=== PATIENT | female | born 1935 | race Caucasian/White ===

== ENCOUNTER 2017-10-05 20:33 | Emergency (ER) | payer MEDICARE, OTHER ==
[~2017-10-05] VITALS: Ht 149.9 cm; Wt 68.0 kg
[2017-10-05 21:20] VITALS: BP 142/76
[2017-10-05] MEDS ORDERED: IBUPROFEN600 MG ORAL (21:27)
[2017-10-05] MEDS ORDERED: LEVAQUIN500 MG ORAL (21:27)
--- NOTE | 2017-10-05 21:28 | Emergency Room Report ---
History of Present Illness General Chief Complaint: Pain Source: Patient Present Illness HPI Is an 82-year-old [place]ian-speaking female with a history of knee replacement at [facility] before. She presents with chief complaint of right ankle pain and swelling. Also some redness. Onset yesterday. Unable to sleep because of throbbing pain. No trauma. No fever chills but no nausea no vomiting. Denies any other complaint. Walking makes it worse. Resting made it better. Allergies: Coded Allergies: CODEINE (Verified Allergy, Unknown, 10/05/17) PENICILLINS (Verified Allergy, Unknown, 10/05/17) PROCAINE (Verified Allergy, Unknown, 10/05/17) Patient History Past Medical History: see triage record, old chart reviewed Past Surgical History: other Pertinent Family History: none Social History: Denies: smoking Now: No Immunizations: other Reviewed Nursing Documentation: PMH: Agreed; PSxH: Agreed Nursing Documentation-PMH Past Medical History: No History, Except For Hx Cardiac Problems: Yes - arrythmia Review of Systems Eye: Denies: eye pain, blurred vision ENT: Denies: ear pain, nose congestion, throat swelling Respiratory: Denies: cough, shortness of breath Cardiovascular: Denies: chest pain, palpitations Gastrointestinal: Denies: abdominal pain, diarrhea, nausea, vomiting Musculoskeletal: Reports: joint pain; Denies: back pain Skin: Denies: rash Neurological: Denies: headache, numbness Endocrine: Denies: increased thirst, increased urine Hematologic/Lymphatic: Denies: easy bruising All Other Systems: negative except mentioned in HPI Physical Exam Vital Signs Date Time Temp Pulse Resp B/P (MAP) Pulse Ox O2 Delivery O2 Flow Rate FiO2 10/05/17 20:39 97.6 81 14 142/76 95 Room Air 97.5 vitals unrem Sp02 EP Interpretation: reviewed, normal General Appearance: well appearing, no apparent distress, alert Head: normocephalic, atraumatic Eyes: bilateral eye PERRL, bilateral eye EOMI ENT: hearing grossly normal, normal pharynx Neck: full range of motion, supple, no meningismus Respiratory: chest non-tender, lungs clear, normal breath sounds Cardiovascular #1: regular rate, rhythm, no murmur Gastrointestinal: normal bowel sounds, non tender, no mass, no organomegaly, no bruit, non-distended Musculoskeletal: back normal, gait/station normal, normal range of motion, other - Right ankle: There is some mild erythema measuring about 4 x 3 cm to the lateral aspect of the foot near the ankle. Mild tenderness. Pulses normal. 1+ edema. No calf tenderness. Psychiatric: mood/affect normal Skin: warm/dry Medical Decision Making Diagnostic Impression: Primary Impression: Cellulitis of foot without toes, right ER Course Patient with redness to the foot. Most likely cellulitis. No trauma to indicate fracture. No evidence of DVT on clinical exam. We'll discharge home. Last Vital Signs Date Time Temp Pulse Resp B/P (MAP) Pulse Ox O2 Delivery O2 Flow Rate FiO2 10/05/17 20:39 97.6 81 14 142/76 95 Room Air 97.5 Status: unchanged Disposition: HOME, SELF-CARE Condition: Stable Scripts Levofloxacin* (LEVAQUIN*) 500 Mg Tablet 500 MG ORAL DAILY, #7 TAB Prov: SYLVIA MORSE M.D. 10/05/17 Ibuprofen* (MOTRIN*) 600 Mg Tablet 600 MG ORAL Q8H PRN for For Pain, #30 TAB 0 Refills Prov: SYLVIA MORSE M.D. 10/05/17 Additional Instructions: Follow-up with your doctor in 7 days. Return if symptom worsen. Elevate leg. SYLVIA MORSE M.D. Oct 05, 2017 21:28
[2017-10-05] MEDS ORDERED: Levofloxacin 500mg tab ORAL ONE (21:30)
== END 2017-10-05 21:25 | disposition home or self-care (01) ==
LOC: EMR 21:20
DX: L03.116 Cellulitis of left lower limb (principal); Z88.0 Allergy status to penicillin; Z88.5 Allergy status to narcotic agent
CPT/HCPCS: 99284